=== PATIENT | female | born 1990 | race Caucasian/White ===

== ENCOUNTER 2017-03-12 07:21 | Emergency (ER) | payer BC ==
[~2017-03-12] VITALS: Ht 160 cm; Wt 83.9 kg
[2017-03-12 07:35] VITALS: BP 152/81
--- NOTE | 2017-03-12 07:50 | PHYS DOC ---
Past Medical History Past Medical History: No Pertinent History Past Surgical History: Alcohol Use: Occasionally Drug Use: None Adult General Chief Complaint Chief Complaint: HEADACHE HPI HPI Patient is a 26 year old female presents to the emergency department with history with a headache that started last night. Patient states she has taken midol, ibuprofen, and tylenol. Patient states this has not really helped. Patient denies fever, chills, vomiting or diarrhea. Patient states she has had nausea. Patient denies blurred vision or photophobia. Denies hx of head aches in the past. Patient states she feels that her upper back and neck are tight. Review of Systems Review of Systems Constitutional: Denies fever or chills [] Eyes: Denies change in visual acuity, redness, or eye pain [] HENT: Denies nasal congestion or sore throat [] Respiratory: Denies cough or shortness of breath [] Cardiovascular: No additional information not addressed in HPI [] GI: Denies abdominal pain, nausea, vomiting, bloody stools or diarrhea [] : Denies dysuria or hematuria [] Musculoskeletal: Denies back pain or joint pain [] Integument: Denies rash or skin lesions [] Neurologic: headache, denies focal weakness or sensory changes [] Endocrine: Denies polyuria or polydipsia [] Current Medications Current Medications Current Medications Medications (Trade) Dose Ordered Sig/Jonathan Start Time Stop Time Status Last Admin Dose Admin Acetaminophen (Tylenol) 650 mg 1X ONCE 03/12/17 08:15 03/12/17 08:16 DC 03/12/17 08:04 650 MG Allergies Allergies Allergies Coded Allergies Type Severity Reaction Last Updated Verified Sulfa (Sulfonamide Antibiotics) Allergy Unknown rash 03/12/17 Yes azithromycin Allergy Unknown rash 03/12/17 Yes cefaclor Allergy Unknown rash 03/12/17 Yes Physical Exam Physical Exam Constitutional: Well developed, well nourished, no acute distress, non-toxic appearance. [] HENT: Normocephalic, atraumatic, bilateral external ears normal, oropharynx moist, no oral exudates, nose normal. Bilateral TM normal, throat with no exudate, redness or erythema. Eyes: PERRLA, EOMI, conjunctiva normal, no discharge. [] Neck: Normal range of motion, no tenderness, supple, no stridor. [] Cardiovascular:Heart rate regular rhythm, no murmur [] Lungs & Thorax: Bilateral breath sounds clear to auscultation [] Skin: Warm, dry, no erythema, no rash. [] Back: No tenderness Extremities: No tenderness, no cyanosis, no clubbing, ROM intact, no edema. [] Neurologic: Alert and oriented X 3, normal motor function, normal sensory function, no focal deficits noted. Cranial nerves II-XII intact Psychologic: Affect normal, judgement normal, mood normal. [] Current Patient Data Vital Signs Vital Signs Date Time Temp Pulse Resp B/P (MAP) Pulse Ox O2 Delivery O2 Flow Rate FiO2 03/12/17 07:35 98.7 79 16 152/81 (104) 99 Room Air 98.7 Lab Values Laboratory Tests Test 03/12/17 06:37 POC Urine HCG, Qualitative Hcg negative (Negative) EKG EKG [] Radiology/Procedures Radiology/Procedures [][facility] [address] [place], [place] [id number] IMAGING REPORT Signed PATIENT: CAROLYN CLINTON ACCOUNT: [id number] : 1990 LOCATION: ER AGE: 26 SEX: F EXAM STATUS: REG ER ORD. PHYSICIAN: KI SILVA APRN REASON: head ache PROCEDURE: CT HEAD WO CONTRAST CT of the head without contrast, 03/12/2017: History: Headache The ventricles are within normal limits in size. There is no shift of the midline structures. There is no evidence of acute intracranial hemorrhage or mass effect. IMPRESSION: The CT of the head without contrast reveals no significant abnormality. PQRS Compliance Statement: One or more of the following individualized dose reduction techniques were utilized for this examination: 1. Automated exposure control 2. Adjustment of the mA and/or kV according to patient size 3. Use of iterative reconstruction technique DICTATED and SIGNED BY: MARY ANN CERRATO MD DATE: 03/12/17 0828 CC: KI SILVA APRN; NON,STAFF; SHWETA GUZMAN MD ~ Course & Med Decision Making Course & Med Decision Making Pertinent Labs and Imaging studies reviewed. (See chart for details) test negative. CT scan of the head pending at this time. Patient has driven herself therefore patient will be provided with medication in which will not cause drowsiness. 0835 CT scan normal per radiology. Patient will be discharged home with Fioricet for headache. She will be encouraged to rest in a quiet dark room. Patient will be provided with reglan for nausea feeling. She will also be recommended to use benadryl to help with sleep. Patient agrees with discharge instructions, treatment regimen and followup recommendations. Patient will be discharged home in stable condition. Signs and symptoms to return to the emergency department has been provided. [] Dragon Disclaimer Dragon Disclaimer This electronic medical record was generated, in whole or in part, using a voice recognition dictation system. Departure Departure Impression: Primary Impression: Tension headache Disposition: HOME, SELF-CARE Condition: STABLE Referrals: SHWETA GUZMAN MD (PCP) Patient Instructions: General Headache Without Cause, [id number] Additional Instructions: Activity as tolerated Medication as prescribed Benadryl 25 mg every 6 hours as needed to aide in sleeping. This medication will cause drowsiness do not take if you need to be alert and oriented. Followup with primary care provider in 7-10 days Return to emergency department as needed for signs and symptoms that become worse. Scripts Metoclopramide Hcl (REGLAN) 10 Mg Tablet 1 TAB PO TID Y for NAUSEA, #90 TAB Prov: KI SILVA APRN 03/12/17 Butalb/Acetaminophen/Caffeine (FIORICET 50-300-40 MG CAPSULE) 1 Each Capsule 1 EACH PO PRN Q4HRS Y for MIGRAINE HEADACHE, #30 CAP Prov: KI SILVA APRN 03/12/17 KI SILVA APRN Mar 12, 2017 07:50
[2017-03-12] MEDS ORDERED: ACETAMINOPHEN 325 MG TABLET. PO ONE (08:15)
--- NOTE | 2017-03-12 08:32 | RAD ---
CT of the head without contrast, 03/12/2017: History: Headache The ventricles are within normal limits in size. There is no shift of the midline structures. There is no evidence of acute intracranial hemorrhage or mass effect. IMPRESSION: The CT of the head without contrast reveals no significant abnormality. PQRS Compliance Statement: One or more of the following individualized dose reduction techniques were utilized for this examination: 1. Automated exposure control 2. Adjustment of the mA and/or kV according to patient size 3. Use of iterative reconstruction technique
[2017-03-12] MEDS ORDERED: BUTA1CAP29 PO (08:43)
[2017-03-12] MEDS ORDERED: METO10TA81 PO (08:43)
== END 2017-03-12 08:55 | disposition home or self-care (01) ==
LOC: ER 07:21
DX: G44.209 Tension-type headache, unspecified, not intractable (principal); Z88.2 Allergy status to sulfonamides; Z88.1 Allergy status to other antibiotic agents
CPT/HCPCS: 70450; 81025; 99284-25